=== PATIENT | male | born 1970 | race Caucasian/White ===

== ENCOUNTER 2024-08-31 15:12 | Inpatient (IN) | payer OTHER ==
[2024-08-31] MEDS: IV FLUID CONTINUATION 1,000 ML IV ONE (15:30)
[2024-08-31] MEDS: MIDAZOLAM 2 MG/2 ML VIAL IVP ONE (15:34)
[2024-08-31] MEDS: fentaNYL (PF) 50 MCG/ML 2 ML AMP IVP ONE (15:34)
[2024-08-31] MEDS: LIDOCAINE 1% INJ 10MG/ML (20 ML MDV) SQ ONE (15:34)
[2024-08-31] MEDS: VERAPAMIL SYRINGE (5 MG/10 ML) INTRAARTER ONE (15:37)
[2024-08-31] MEDS: HEPARIN SODIUM 1,000 UN/ML (10ML VL) IVP ONE (15:49)
[2024-08-31] MEDS: PRASUGREL 10 MG TAB PO ONE (15:49)
[2024-08-31] MEDS: IOPAMIDOL-370 100ML BTL INJ ONE ×3 (15:51→16:38)
[2024-08-31] MEDS ORDERED: ATROPINE SULFATE 0.1 MG/ML 10ML SYRINGE IV PRN (16:50)
[2024-08-31] MEDS ORDERED: ZOLPIDEM 5 MG TAB PO PRN (16:50)
[2024-08-31] MEDS ORDERED: MAG HYDROX/AL HYDROX/SIMETH 30 ML CUP PO PRN (16:50)
[2024-08-31] MEDS ORDERED: NITROGLYCERIN SL TABS 0.4 MG TAB SUBLINGUAL PRN (16:50)
[2024-08-31] MEDS ORDERED: RX INFO: IV CONTRAST WAS GIVEN 1 EACH MISC MISCELLANE PRN (16:50)
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
--- NOTE | 2024-08-31 17:11 | P.CARDCATH ---
Date of Procedure: 08/31/24 Description of Procedure: Cardiac Catheterization: The patient is a 54-year-old male with a known history of hypertension, hyperlipidemia and diabetes mellitus as well as chronic tobacco use who presented with an acute inferior wall myocardial infarction to [facility]. He had evidence of 2:1 conduction. He was transferred to [facility]. Recommendations were made regarding cardiac catheterization, the risks and the complications were discussed with the patient who is in full understanding and agreement. 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 Using Xylocaine Anesthesia and modified Seldinger technique, a 6-Filipino sheath was introduced in the right radial artery . Subsequently, selective coronary angiography was performed using a 6 -Filipino 4 bend right Kayli guiding catheter and 6 Filipino CLS 3.5 guiding catheter. Multiple views of the coronary artery including hemiaxial views were obtained. The the 6 Filipino right Kayli catheter was used to cross the aortic valve and LVEDP was calculated. PCI: Using the 6 Filipino CLS 3.5 guiding catheter and after cannulating the left main a 0.014 BMW J-wire was advanced to the distal left PLV. Subsequently a 2.5 x 12 mm trek balloon was advanced and 1 inflation at 8 mike was done. Subsequently and after removing the balloon a [employer] eye IVUS catheter was introduced. There was artifacts from the catheter but it showed no significant calcifications. At that time a 2.75 x 18 mm Xience renetta point stent was advanced and deployed at 14 mike. After removing the balloon repeat IVUS imaging was performed and subsequently a 3.0 x 12 mm NC trek balloon was advanced and 1 inflation in the proximal segment of the stent was performed at 10 mike. After removing the balloon and the wire the wire was introduced in the ramus intermedius and a 2.5 x 12 mm trek balloon was advanced and 1 inflation at 8 mike was done. IVUS imaging was performed and subsequently a 2.5 x 18 mm Xience renteta point stent was deployed at 16 mike. Repeat IVUS imaging was performed and a 2.75 x 12 mm NC trek balloon was advanced and 1 inflation in the proximal segment of the stent was performed at 10 mike. After removing the balloon a 3.0 x 15 mm Xience renetta point stent was deployed proximal to the first 1 at 16 mike. After removing the wire images were obtained and revealed stable successful stenting. Following that, catheter and sheath were removed. Hemostasis was obtained with deployment of vascular band . There was no immediate complication. Patient was returned to room in stable condition. Of note, the patient received a total of 7500 units of intravenous heparin as well as intra-arterial verapamil. He received an oral loading dose of Prasurgel. His ACT was monitored. He was pain-free at the end of the procedure. He had EKG changes with the inflations that resolved. Findings: Left main: This is a large size vessel, trifurcating into LAD, ramus intermedius and left circumflex, left main has mild obstructive disease in the midsegment of 10 to 20%. LAD: This is a large size vessel, reaching to the apex, giving rise to a small diagonal branch. The proximal LAD has 20 to 30% plaque. The rest of the vessel has no high-grade stenosis. Left circumflex: This is a large codominant vessel, bifurcating distally to PDA and PLV. It gives rise to a moderately sized obtuse marginal branch in the midsegment. The left circumflex distally has a 99% stenosis at the bifurcation, there is a 20 to 30% plaque in the midsegment. The rest of the vessel has no high-grade stenosis. RCA: This is a moderate codominant vessel giving rise to a small PDA. The right coronary artery has no obstructive disease. Ramus intermedius: This is a large size vessel, reaching to the apical lateral wall, the ramus intermedius has a 80% plaque proximally and another 90% in the midsegment, the rest of the vessel has no high-grade stenosis Left Ventriculogram: Not performed Hemodynamics: There was no gradient across aortic valve, LVEDP was 10-12 mmHg Conclusion: 1. Severe stenosis in the distal codominant left circumflex 2. Severe stenosis in the ramus intermedius 3. Mild disease in the LAD 4. Successful stenting of the left circumflex with reduction of stenosis from 99% to 0% with adjunctive IVUS imaging and BONIFACIO-3 flow 5. Successful stenting of the ramus intermedius with reduction stenosis from 90% to 0% with adjunctive IVUS imaging and BONIFACIO-3 flow Recommendations: The patient will continue on aspirin and Prasurgel for 1 year without any interruption in addition to aggressive coronary risks modification, maintaining LDL below 70 mg/dL. He will be referred to [place] [facility]. The findings and the recommendations were discussed with the patient and the family and they were in full understanding and agreement. Duration of sedation is 64 minutes.
[2024-08-31 17:15] LABS: Glucose,Whole Blood 291 mg/dL (70-110)
[2024-08-31] MEDS: SODIUM CHLORIDE 0.9% 1,000 ML in EMPTY BAG 1 BAG IV SCH (17:35)
[2024-08-31] MEDS ORDERED: DEXTROSE 50% SYRINGE 50 ML IVP PRN ×2 (19:13)
[2024-08-31 20:07] LABS: Glucose,Whole Blood 403 mg/dL (70-110)
[2024-08-31] MEDS: METOPROLOL TARTRATE 25 MG TAB PO SCH (20:43)
[2024-08-31] MEDS: INSULIN ASPART (NovoLOG) 100 UNIT/ML VIAL SQ SCH (20:43)
[2024-08-31] MEDS: ATORVASTATIN 80 MG TAB PO SCH (20:43)
[2024-08-31] MEDS: INSULIN DETEMIR (LEVEMIR) 100 UNIT/ML SYR SQ SCH (20:51)
[2024-08-31] MEDS: HYDROcodone/APAP 10-325MG 1 EACH TAB PO PRN (21:12)
[2024-09-01 06:14] LABS: African American GFR (CKD) >90 (>60 ml/min/1.73 sqM); Anion Gap 6 mmol/L; Blood Urea Nitrogen 17 mg/dL (9-20); Calcium 9.4 mg/dL (8.4-10.2); Carbon Dioxide 25 mmol/L (22-30); Chloride 100 mmol/L (98-107); Glucose 285 mg/dL (74-99); Non-African American GFR(CKD) >90 (>60 ml/min/1.73 sqM); Potassium 4.3 mmol/L (3.5-5.1); Sodium 131 mmol/L (137-145)
[2024-09-01 06:22] LABS: Glucose,Whole Blood 273 mg/dL (70-110)
[2024-09-01 08:36] LABS: LDL Cholesterol,Calculated 124.6 mg/dL (0.0-131.0)
[2024-09-01] MEDS: LOSARTAN 25 MG TAB PO SCH (09:37)
[2024-09-01] MEDS: ASPIRIN 81 MG PO SCH (09:38)
--- NOTE | 2024-09-01 09:49 | P.PN ---
Subjective Progress Note Date: 09/01/24 The patient is a 54-year-old male who presented to [facility] with acute onset of chest discomfort. He was diagnosed with an inferior wall myocardial infarction and therefore was transferred to [facility] for intervention. He underwent coronary angiogram with Dr. Ulloa and subsequent stenting of the ramus intermedius as well as left circumflex. Echocardiogram results are pending Patient interviewed and examined resting comfortably in bed. He denies any current chest pain or chest pressure. No difficulty breathing. GENERAL: Well-appearing, well-nourished and in no acute distress. NECK: Supple without JVD or thyromegaly. LUNGS: Breath sounds clear to auscultation bilaterally. Respiration equal and unlabored. No wheezes, rales or rhonchi. HEART: Regular rate and rhythm without murmurs, rubs or gallops. S1 and S2 heard. EXTREMITIES: Normal range of motion, no edema. No clubbing or cyanosis. Peripheral pulses intact and strong. No hematoma at cath site TELEMETRY: Sinus rhythm overnight LABS: Sodium 131, potassium 4.3, BUN 17, creatinine 0.67, hemoglobin A1c is 11.1, trig lycerides 69, LDL 124, HDL 34 IMPRESSION: Acute inferior wall myocardial infarction Status post stenting to the ramus intermedius and left circumflex Hypertension Hyperlipidemia Type 2 diabetes, uncontrolled Chronic tobacco use History of left BKA, secondary to mechanical injury PLAN: Start losartan 25 mg daily Continue dual antiplatelet therapy Awaiting echocardiogram results Further recommendations to be based upon clinical course I am dictating on behalf of Dr Ortiz Jin's history/physical and assessment/plan. Objective - Vital Signs Vital signs: Vital Signs Temp 97.6 F 09/01/24 04:00 Pulse 67 09/01/24 07:00 Resp 15 09/01/24 07:00 BP 127/80 09/01/24 06:15 Pulse Ox 92 L 09/01/24 07:00 FiO2 Intake & Output 08/31/24 09/01/24 09/01/24 18:59 06:59 18:59 Intake Total 900 290 10 Output Total 600 2400 0 Balance 300 -2110 10 Weight 102 kg 104 kg Intake: IV 400 290 10 Sodium Chloride 0.9% 1, 100 200 000 ml In Empty Bag 1 bag @ 1 ML/KG/HR 102 mls/hr IV .[id number] [facility] Rx#: [id number] kvo 90 10 Oral 500 Output: Urine 600 2400 0 Other: Voiding Method Urinal - Labs CBC & Chem 7: 09/01/24 05:42 Labs: Abnormal Lab Results - Last 24 Hours (Table) 08/31/24 08/31/24 09/01/24 Range/Units 17:14 20:06 05:42 Sodium (137-145) mmol/L Glucose (74-99) mg/dL POC Glucose (mg/dL) 291 H 403 H (70-110) mg/dL Hemoglobin A1c 11.1 H (<=6.0) % HDL Cholesterol (40.00-60.00) mg/dL 09/01/24 09/01/24 Range/Units 05:42 06:21 Sodium 131 L (137-145) mmol/L Glucose 285 H (74-99) mg/dL POC Glucose (mg/dL) 273 H (70-110) mg/dL Hemoglobin A1c (<=6.0) % HDL Cholesterol 34.60 L (40.00-60.00) mg/dL
[2024-09-01] MEDS: PRASUGREL 10 MG TAB PO SCH (10:12)
[2024-09-01] MEDS: LOSARTAN 25 MG TAB PO STA (11:17)
--- NOTE | 2024-09-01 11:33 | CA ---
Transthoracic Echo Report Name: William Frye Age: 54 Gender: M : 1970 Exam Date: 09/01/2024 08:28 Exam Location: [facility] Ht (in): 71 Wt (lb): 224 Ordering Physician: Reji Ulloa MD ([id number]) Attending/Referring Phys: Warp Dresser Apolonia Gruber RDCS Procedure CPT: Indications: RI Cardiac Hx: stents Technical Quality: Fair Contrast 1: Total Dose (mL): Contrast 2: Total Dose (mL): MEASUREMENTS (Male / Female) Normal Values 2D ECHO LV Diastolic Diameter PLAX 4.5 cm 4.2 - 5.9 / 3.9 - 5.3 cm LV Systolic Diameter PLAX 3.0 cm IVS Diastolic Thickness 1.1 cm 0.6 - 1.0 / 0.6 - 0.9 cm LVPW Diastolic Thickness 1.1 cm 0.6 - 1.0 / 0.6 - 0.9 cm LV Relative Wall Thickness 0.5 RV Internal Dim ED PLAX 3.2 cm LA Systolic Diameter LX 3.5 cm 3.0 - 4.0 / 2.7 - 3.8 cm LV Diastolic Volume MOD 4C 128.8 cm??? LV Systolic Volume MOD 4C 74.1 cm??? LV Ejection Fraction MOD 4C 42.5 % LV Cardiac Index MOD 4C 1582.5 cm???/min???m??? LV Diastolic Length 4C 10.4 cm LV Systolic Length 4C 9.4 cm LV Diastolic Volume MOD 2C 112.9 cm??? LV Systolic Volume MOD 2C 46.9 cm??? LV Ejection Fraction MOD 2C 58.5 % LV Cardiac Index MOD 2C 1907.9 cm???/min???m??? LV Diastolic Length 2C 10.1 cm LV Systolic Length 2C 8.1 cm LA Volume 50.2 cm??? 18 - 58 / 22 - 52 cm??? LA Volume Index 22.0 cm???/m??? 16 - 28 cm???/m??? M-MODE Aortic Root Diameter MM 3.4 cm AV Cusp Separation MM 2.4 cm DOPPLER AV Peak Velocity 124.3 cm/s AV Peak Gradient 6.2 mmHg MV Area PHT 3.0 cm??? Mitral E Point Velocity 78.2 cm/s Mitral A Point Velocity 83.5 cm/s Mitral E to A Ratio 0.9 MV Deceleration Time 254.0 ms FINDINGS Left Ventricle Left ventricular ejection fraction is estimated at 50-55 %. Left ventricular cavity size normal. Left ventricular wall thickness normal. No obvious regional wall motion abnormalities. Right Ventricle Normal right ventricular size. Unable to estimate the right ventricular systolic pressure. Right Atrium Normal right atrial size. No right atrial thrombus or mass seen. Left Atrium Normal left atrial size. No left atrial thrombus or mass present. Mitral Valve Structurally normal mitral valve. No mitral stenosis, regurgitation or prolapse. Aortic Valve Trileaflet aortic valve. No aortic valve stenosis or regurgitation. Tricuspid Valve Structurally normal tricuspid valve. No tricuspid stenosis, regurgitation or prolapse. Pulmonic Valve Pulmonic valve not well visualized. Pericardium No pericardial effusion. Aorta Normal size aortic root and proximal ascending aorta. CONCLUSIONS Normal LV size with fairly well-preserved systolic function ejection fraction is about 55%. No significant abnormality on the Doppler exam. No pericardial effusion. Right-sided pressures are not well quantified Previewed by: Dr. Supriya Wong MD (Electronically Signed) Final Date: 01 September 2024 11:33
[2024-09-01 11:34] LABS: Glucose,Whole Blood 338 mg/dL (70-110)
[2024-09-01] MEDS: IPRATROPIUM-ALBUTEROL 3 ML NEB INHALATION PRN (14:59)
[2024-09-01 15:00] VITALS: BMI 31.9
[2024-09-01 15:59] LABS: Glucose,Whole Blood 279 mg/dL (70-110)
[2024-09-01] MEDS: HYDROcodone/APAP 10-325MG 1 EACH TAB PO SCH (18:42)
[2024-09-01 20:46] LABS: Glucose,Whole Blood 299 mg/dL (70-110)
[2024-09-01] MEDS: PREGABALIN 75 MG CAP PO SCH (21:24)
[2024-09-02 06:30] LABS: Glucose,Whole Blood 223 mg/dL (70-110)
[2024-09-02] MEDS: MULTIVITAMINS, THERA 1 EACH TAB PO SCH (08:45)
--- NOTE | 2024-09-02 09:59 | P.PN ---
Subjective Progress Note Date: 09/02/24 The patient is a 54-year-old male who presented to [facility] with acute onset of chest discomfort. He was diagnosed with an inferior wall myocardial infarction and therefore was transferred to [facility] for intervention. He underwent coronary angiogram with Dr. Ulloa and subsequent stenting of the ramus intermedius as well as left circumflex. Echocardiogram revealed preserved LV function with no significant valvular abnormalities Patient interviewed and examined resting comfortably in bed. He denies any current chest pain or chest pressure. No difficulty breathing. GENERAL: Well-appearing, well-nourished and in no acute distress. NECK: Supple without JVD or thyromegaly. LUNGS: Breath sounds clear to auscultation bilaterally. Respiration equal and unlabored. No wheezes, rales or rhonchi. HEART: Regular rate and rhythm without murmurs, rubs or gallops. S1 and S2 heard. EXTREMITIES: Normal range of motion, no edema. No clubbing or cyanosis. Peripheral pulses intact and strong. No hematoma at cath site TELEMETRY: Sinus rhythm overnight IMPRESSION: Acute inferior wall myocardial infarction Status post stenting to the ramus intermedius and left circumflex Hypertension Hyperlipidemia Type 2 diabetes, uncontrolled Chronic tobacco use History of left BKA, secondary to mechanical injury PLAN: Increase losartan to 50 mg daily Discussed the importance of diabetes control with the patient Encourage ambulation Downgrade to 3 S. with possible pending discharge tomorrow I am dictating on behalf of Dr Ortiz Jin's history/physical and assessment/plan. Objective - Vital Signs Vital signs: Vital Signs Temp 97.9 F 09/02/24 04:00 Pulse 64 09/02/24 04:00 Resp 16 09/02/24 04:00 BP 134/83 09/02/24 04:00 Pulse Ox 95 09/02/24 04:00 FiO2 Intake & Output 09/01/24 09/02/24 09/02/24 18:59 06:59 18:59 Intake Total 30 Output Total 500 1450 Balance -470 -1450 Weight 104 kg 103.6 kg Intake: IV 30 0.9 Normal Saline @ KVO 30 Output: Urine 500 1450 Other: Voiding Method Urinal Urinal - Labs CBC & Chem 7: 09/01/24 05:42 Labs: Abnormal Lab Results - Last 24 Hours (Table) 0109/01/24 09/01/24 Range/Units 11:33 15:57 20:45 POC Glucose (mg/dL) 338 H 279 H 299 H (70-110) mg/dL 09/02/24 Range/Units 06:28 POC Glucose (mg/dL) 223 H (70-110) mg/dL
[2024-09-02] MEDS: LOSARTAN 25 MG TAB PO STA (10:53)
[2024-09-02 10:56] LABS: Glucose,Whole Blood 261 mg/dL (70-110)
[2024-09-02] MEDS: DAPAGLIFLOZIN PROPANEDIOL 5 MG TABLET PO SCH (15:34)
[2024-09-02 16:32] LABS: Glucose,Whole Blood 251 mg/dL (70-110)
[2024-09-02 19:56] LABS: Glucose,Whole Blood 218 mg/dL (70-110)
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
--- NOTE | 2024-09-03 05:12 | PN ---
PROGRESS NOTE SUBJECTIVE: A 54-year-old white male, status post angioplasty x2. Echocardiogram showed preserved LV function. No significant valvular abnormalities felt. No acute distress. He has a BKA on the left leg. OBJECTIVE: HEART: S1, S2. EXTREMITIES: No cyanosis, clubbing, edema. ASSESSMENT: Sinus rhythm overnight. Acute inferior wall myocardial infarction, status post stenting of the ramus intermedius to the left circumflex. Hypertensive dyslipidemia, chronic obstructive pulmonary disease, pulmonary hypertension, nicotine addiction. They increased his losartan for hypertension, diabetes control. Add Farxiga. Possibly go home tomorrow. Monitor signs of hypertension. He says he is much better after his heart is stable at this time. MMODL / IJN: [id number] /
[2024-09-03 05:57] LABS: Glucose,Whole Blood 299 mg/dL (70-110)
[2024-09-03 08:48] VITALS: RESP 17
[2024-09-03] MEDS: LOSARTAN 50 MG TAB PO SCH (09:48)
[2024-09-03 11:27] VITALS: BP 120/79; PULSE 72; TEMP 97.8
[2024-09-03 12:08] LABS: Glucose,Whole Blood 257 mg/dL (70-110)
--- NOTE | 2024-09-03 13:08 | P.PN ---
Subjective Progress Note Date: 09/03/24 The patient is a 54-year-old male who presented to [facility] with acute onset of chest discomfort. He was diagnosed with an inferior wall myocardial infarction and therefore was transferred to [facility] for intervention. He underwent coronary angiogram with Dr. Ulloa and subsequent stenting of the ramus intermedius as well as left circumflex. Echocardiogram revealed preserved LV function with no significant valvular abnormalities. Patient has been managed in the intensive care unit and now transferred to the cardiac stepdown unit. Patient denies having any chest pain no shortness of breath no lightheadedness or dizziness. He is maintained on dual antiplatelet therapy with aspirin and Effient. Yesterday, losartan was increased to 50 mg daily. Blood pressure 120/79, heart rate 72, pulse ox 95% on room air. GENERAL: Well-appearing, well-nourished and in no acute distress. NECK: Supple without JVD or thyromegaly. LUNGS: Breath sounds clear to auscultation bilaterally. Respiration equal and unlabored. No wheezes, rales or rhonchi. HEART: Regular rate and rhythm without murmurs, rubs or gallops. S1 and S2 heard. EXTREMITIES: Normal range of motion, no edema. No clubbing or cyanosis. Peripheral pulses intact and strong. No hematoma at cath site TELEMETRY: Sinus rhythm overnight IMPRESSION: Acute inferior wall myocardial infarction Status post stenting to the ramus intermedius and left circumflex Hypertension Hyperlipidemia Type 2 diabetes, uncontrolled Chronic tobacco use History of left BKA, secondary to mechanical injury PLAN: Continue following cardiac medications: Aspirin 81 mg daily, Effient 10 mg daily, Farxiga 5 mg daily, atorvastatin 80 mg at bedtime, losartan 50 mg daily, Lopressor 25 mg twice daily, Nitrostat as needed. New cardiac prescriptions have been sent to his pharmacy Patient is cleared for discharge from cardiology and will follow-up with Dr. Ulloa in 1 week. I am dictating on behalf of Dr Ortiz Jin's history/physical and a ssessment/plan. Objective - Vital Signs Vital signs: Vital Signs Temp 98.1 F 09/03/24 04:00 Pulse 66 09/03/24 08:02 Resp 17 09/03/24 07:50 BP 119/80 09/03/24 07:50 Pulse Ox 95 09/03/24 07:50 FiO2 Intake & Output 09/02/24 09/03/24 09/03/24 18:59 06:59 18:59 Intake Total 1760 240 Output Total 0 Balance 1760 240 Weight 103.3 kg Intake: Oral 1760 240 Output: Urine 0 Other: Voiding Method Toilet Toilet # Voids 1 - Labs CBC & Chem 7: 09/01/24 05:42 Labs: Abnormal Lab Results - Last 24 Hours (Table) 09/02/24 09/02/24 09/02/24 Range/Units 10:55 16:30 19:55 POC Glucose (mg/dL) 261 H 251 H 218 H (70-110) mg/dL 09/03/24 Range/Units 05:55 POC Glucose (mg/dL) 299 H (70-110) mg/dL
== END 2024-09-03 14:56 | disposition home or self-care (01) | DRG 174 ==
LOC: 2SICU 15:12 → 3SCARD 09-02 13:55
PROVIDERS: ADMIT Family Medicine; ATTEND Family Medicine
PROC: 4A023N7 Measurement of Cardiac Sampling and Pressure, Left Heart, Percutaneous Approach (ICD-10-PCS; principal; 2024-08-31 16:45)
PROC: B2111ZZ Fluoroscopy of Multiple Coronary Arteries using Low Osmolar Contrast (ICD-10-PCS; 2024-08-31 16:45)
PROC: 027136Z Dilation of Coronary Artery, Two Arteries with Three Drug-eluting Intraluminal Devices, Percutaneous Approach (ICD-10-PCS; 2024-08-31 16:45)
PROC: B241ZZ3 Ultrasonography of Multiple Coronary Arteries, Intravascular (ICD-10-PCS; 2024-08-31 16:45)
DX: I21.19 ST elevation (STEMI) myocardial infarction involving other coronary artery of inferior wall (principal); I10 Essential (primary) hypertension; E11.65 Type 2 diabetes mellitus with hyperglycemia; F17.210 Nicotine dependence, cigarettes, uncomplicated; E78.5 Hyperlipidemia, unspecified; Z89.512 Acquired absence of left leg below knee; J44.9 Chronic obstructive pulmonary disease, unspecified; I25.10 Atherosclerotic heart disease of native coronary artery without angina pectoris; I27.20 Pulmonary hypertension, unspecified; Z79.82 Long term (current) use of aspirin; Z79.899 Other long term (current) drug therapy
CPT/HCPCS: 80048; 80061; 83036; 92978; 92979; 93306; 93458; 94640